=== PATIENT | male | born 1990 | race Two or more races ===

== ENCOUNTER 2022-09-19 21:10 | Emergency (ER) | payer BC ==
[~2022-09-19] VITALS: Ht 167.6 cm; Wt 74.8 kg
--- NOTE | 2022-09-19 21:24 | NUR ---
Note lupeone in EDM - 09/19/22 at 2239 by [facility] PT BIBS FOR L UNDERARM ABSCESS THAT PROGRESSIVELY WORSATENED SINCE SUNDAY WITH SURROUNDING ERRYTHEMA WELL L ELBOW SWELLING AND REDNESS SINCE SUNDAY. ENDORSES UNTREATED L EAR INX ONE WEEK PRIOR. LOW GRADE FEVER AT TRIAGE 99.3 WITH MILD CHILLS OTHERWISE V/S WNL. AWAKE AND ALERT X4 RR EVEN AND UNLABORED. TO ER BED 9 CHANGED INTO GOWN.
[2022-09-19 21:38] VITALS: BP 116/71
== END 2022-09-19 21:50 | disposition home or self-care (01) ==
LOC: ER 21:15
DX: M79.672 Pain in left foot (principal)